=== PATIENT | male | born 1975 | race Caucasian/White ===

== ENCOUNTER 2023-11-28 08:57 | Emergency (ER) | payer BC, SELFPAY ==
[2023-11-28 09:00] VITALS: BP 165/103
--- NOTE | 2023-11-28 09:07 | ED.GENMED ---
History of Present Illness
<Angeline Henderson DEVELOPMENTAL MATHEMATICS PROFESSOR - Last Filed: 11/28/23 15:47>
General
Chief Complaint: Swelling
Source: patient
Exam Limitations: none
Time Seen by Provider: 11/28/23 09:06
Nursing documentation reviewed up to this point in time: agreed with
History of Present Illness
History of Present Illness:
48-year-old male with history of A-fib on Eliquis, HTN on Lisinopril since 04/2021) and metoprolol presents with tongue swelling. States 1:30 this a.m. left side tongue swelled, this has subsided but at 7 a.m. the right side of his tongue swelled and
this is how he presents now. He denies any know exposures. He denies swelling or pain in throat. He is able to swallow and speak well. He denies SOB, CP.
Left ankle pain and swelling past month. No overuse or injury. This a.m. pain 12/06. 'I know it's gout.' Has had gout in left great toe in past and taken steroids for it. Denies fever/chills.
Past History
<Angeline Henderson DEVELOPMENTAL MATHEMATICS PROFESSOR - Last Filed: 11/28/23 15:47>
Past History
ED Past Medical History: CAD, HTN and Hypercholesterolemia
ED Past Surgical History: Cardiac (CABG x 4) and Other (hernia repair)
Social History
Tobacco: Former smoker
Alcohol: Occasional
Personal: Single
Living: alone
Employment: Employed
Review of Systems
<Angeline Henderson, DEVELOPMENTAL MATHEMATICS PROFESSOR - Last Filed: 11/28/23 15:47>
Review of Systems
Allergies reviewed?: Yes
All Other Systems: ROS reviewed and negative except as documented in HPI and ROS
Constitutional: Denies fever
EENT: Reports other (tongue swelling); Denies sore throat
Respiratory: Denies trouble breathing
Cardiac: Denies chest pain
ABD/GI: Denies abdominal pain or nausea
Musculoskeletal: Reports other (pain, swelling left ankle past month. Hx gout in right great toe, 'I know it's gout' Has taken Tylenol for the pain 12/06 this a.m. Has taken steroids in the past for his gout)
Skin: Reports no symptoms
Neurological: Reports no symptoms
Phy Exam
<Angeline Henderson, DEVELOPMENTAL MATHEMATICS PROFESSOR - Last Filed: 11/28/23 15:47>
Physical Exam
Physical Exam:
GENERAL: No acute distress. A&Ox3.
CONSTITUTIONAL: Afebrile.
EYES: clear, conjunctivae normal
Neck: Supple
ENMT: moist mucus membranes, moderate edema right side only of tongue. Swallowing well, speaking well. Pharynx nl
RESPIRATORY: Regular respirations, nonlabored, lungs clear.
CARDIOVASCULAR: Regular rate and rhythm, no murmurs, no rubs.
GI: Soft, nontender
MUSCULOSKELETAL: Moderate swelling and tenderness lateral aspect left ankle, no redness or warmth. Well perfused.
SKIN: Warm, dry, pink
PSYCH: Normal mood and affect. Well kept, interactive and appropriate
NEUROLOGIC: Awake, alert and oriented. No focal neurological deficits
Scores
<Angeline Henderson, DEVELOPMENTAL MATHEMATICS PROFESSOR - Last Filed: 11/28/23 15:47>
Heart Failure Risk
Heart Failure Risk Score: Not Applicable
Course
<Angeline Henderson, DEVELOPMENTAL MATHEMATICS PROFESSOR - Last Filed: 11/28/23 15:47>
Orders/Labs/Results
Orders:
Orders
11/28/23 09:35
Dexamethasone Pf [Decadron] 10 mg PO NOW STA
11/28/23 10:15
Diphenhydramine [Benadryl] 50 mg IV NOW STA
11/28/23 10:35
Complete Blood Count/With Diff Urgent
Comprehensive Metabolic Panel Urgent
Abnormal Lab Results
11/28/23
10:35
MCHC 32.6 L g/dL
(33.0-37.0)
MPV 10.6 H fL
(7.4-10.4)
Absolute Neuts (auto) 7.8 H 10^3/uL
(1.4-6.5)
Absolute Monos (auto) 1.0 H 10^3/uL
(0.1-0.6)
Neutrophils % 75.6 H %
(42.2-75.2)
Lymphocytes % 11.7 L %
(20.5-51.1)
Monocytes % 10.1 H %
(1.7-9.3)
Glucose 106 H mg/dl
(70-99)
11/28/23 10:35
11/28/23 10:35
Vital Signs
Initial and Last Documented VS:
Initial Vital Signs
Temp Pulse Resp BP Pulse Ox
98.6 F 85 18 165/103 96
11/28/23 09:00 11/28/23 09:00 11/28/23 09:00 11/28/23 09:00 11/28/23 09:00
Last Documented Vital Signs
Temp Pulse Resp BP Pulse Ox
98.6 F 94 22 134/77 96
11/28/23 09:00 11/28/23 12:45 11/28/23 12:45 11/28/23 12:00 11/28/23 12:45
<Kristian Mosley MD - Last Filed: 11/28/23 12:33>
Orders/Labs/Results
Orders:
Orders
11/28/23 09:35
Dexamethasone Pf [Decadron] 10 mg PO NOW STA
11/28/23 10:15
Diphenhydramine [Benadryl] 50 mg IV NOW STA
11/28/23 10:35
Complete Blood Count/With Diff Urgent
Comprehensive Metabolic Panel Urgent
Abnormal Lab Results
11/28/23
10:35
MCHC 32.6 L g/dL
(33.0-37.0)
MPV 10.6 H fL
(7.4-10.4)
Absolute Neuts (auto) 7.8 H 10^3/uL
(1.4-6.5)
Absolute Monos (auto) 1.0 H 10^3/uL
(0.1-0.6)
Neutrophils % 75.6 H %
(42.2-75.2)
Lymphocytes % 11.7 L %
(20.5-51.1)
Monocytes % 10.1 H %
(1.7-9.3)
Glucose 106 H mg/dl
(70-99)
11/28/23 10:35
11/28/23 10:35
Vital Signs
Initial and Last Documented VS:
Initial Vital Signs
Temp Pulse Resp BP Pulse Ox
98.6 F 85 18 165/103 96
11/28/23 09:00 11/28/23 09:00 11/28/23 09:00 11/28/23 09:00 11/28/23 09:00
Last Documented Vital Signs
Temp Pulse Resp BP Pulse Ox
98.6 F 94 22 134/77 96
11/28/23 09:00 11/28/23 12:45 11/28/23 12:45 11/28/23 12:00 11/28/23 12:45
<Angeline Henderson, DEVELOPMENTAL MATHEMATICS PROFESSOR - Last Filed: 11/28/23 15:47>
MDM/Problems Addressed
Differential Diagnosis Includes:
ACEI side effect (Bradykinin induced), allergic (mast cell/histamine, idiopathic angioedema, AAE-C1-INH
Gout left ankle
MDM/Problems Addressed:
48-year-old male with history of A-fib on Eliquis, HTN on Lisinopril since 04/2021) and metoprolol presents with tongue swelling. States 1:30 this a.m. left side tongue swelled, this has subsided but at 7 a.m. the right side of his tongue swelled and
this is how he presents now. He denies any know exposures. He denies swelling or pain in throat. He is able to breathe, swallow and speak well. He denies SOB, CP.
Left ankle pain and swelling past month. No overuse or injury. This a.m. pain 12/06. 'I know it's gout.' Has had gout in left great toe in past and taken steroids for it. Denies fever/chills.
Afebrile, VSS, NAD
Pt states no known exposures, is on Lisinopril which is most likely offending agent
Plan: Monitor airway
Given Decadron for presumptive gout left ankle
10:10 a.m.
Called to pt room, he states 'my lymph nodes suddenly got swollen.' Talking with hot potato voice. Denies difficulty breathing or swallowing. VSS Pulse ox 97% RA
Dr. Mosley in to evaluate
Plan: Admit for observation, airway management if needed
Hospitalist notified of admission
10:45 a.m.
Pt states his neck swelling feels 'a little better.'
12:30 p.m.
Pt neck swelling is significantly better. Tongue is about 80% less swollen. Pt wants to go home. This is reasonable. Return instructions discussed.
For his left ankle pain/gout rx for Prednisone sent to his pharmacy
<Angeline Henderson DEVELOPMENTAL MATHEMATICS PROFESSOR - Last Filed: 11/28/23 15:47>
*Critical Care Note
Total Time (30-74mins, 75-104mins- exclusive of procedures): Not Applicable
ED Attending Note
<Angeline Henderson DEVELOPMENTAL MATHEMATICS PROFESSOR - Last Filed: 11/28/23 15:47>
-
Portions of this chart may have been created with voice recognition software.� Occasional wrong word or��sound alike� substitutions may have occurred due to the inherent limitations of voice recognition software.
<Kristian Mosley MD - Last Filed: 11/28/23 12:33>
ED Attending Note
Patient seen and examined by attending physician: Yes
I performed the substantive portion of visit, reviewed & personally made and approve the management plan that is documented in note by myself or MARTIN.: Yes
ED Attending Note:
Patient is a 40-year-old male with history of hypertension on lisinopril presenting to the emergency department with tongue swelling. Patient states that this morning he had left-sided tongue swelling. That resolved and then later this morning
developed right-sided tongue swelling. He states that it has been stable since he arrived. He does not have any swelling in the back of his throat. He does feel as if his voice is more muffled and slurred secondary to the tongue. He denies any
difficulty breathing. No difficulty swallowing his secretions. He denies any new medications food or allergic reactions. No rashes vomiting or diarrhea. He did receive Decadron and states that he feels some fullness underneath his jaw with his
lymph nodes. He denies any lip swelling or eye swelling. Vitals are notable for elevated blood pressure initially within normal pulse ox. Exam does show significant right sided tongue swelling with difficulty visualizing the posterior oropharynx.
No lip involvement. His neck does have some fullness but no significant edema at this time. His lungs are clear to auscultation bilaterally. No stridor. Concern for KAYLEY inhibitor induced angioedema. Will give him Benadryl. Patient will need
to be admitted for an airway watch. I did discuss with patient the need for fiberoptic awake intubation if symptoms progress at this time he is amenable to it.
On reevaluation all patient's symptoms have mostly resolved. He does have some slight residual tongue swelling. Patient is actually asking to be discharged home given the improvement in symptoms which is what occurred with the left side of his
tongue. Strict return precautions given. I did encourage admission however patient adamant about going home.
Discharge Plan
Departure
Patient Disposition: Home (Routine Discharge)
Date of Disposition: 11/28/23
Time of Disposition: 10:18
Admit to: ICU
Patient with high blood pressure during this ER visit?: No
Condition: Good
Discharge Problem:
Angioedema
Instructions: Angioedema caused by KAYLEY inhibitor medicines
Prescriptions:
New
prednisone 20 mg tablet
40 mg PO DAILY Qty: 10 0RF
No Action
atorvastatin 80 mg Tablet
80 mg PO DAILY
metoprolol succinate [Toprol XL] 50 mg Tablet Extended Release 24 Hr
50 mg PO DAILY
lisinopril 10 mg Tablet
10 mg PO DAILY
metoprolol succinate [Toprol XL] 25 mg Tablet Extended Release 24 Hr
25 mg PO BID
albuterol sulfate 90 mcg/actuation Hfa Aerosol Inhaler
2 puff INHALATION Q6H PRN (Reason: wheezing)
multivitamin Capsule
1 cap PO DAILY
Eliquis 5 mg Tablet
5 mg PO BID
dapagliflozin propanediol [Farxiga] 10 mg Tablet
10 mg PO DAILY
Referrals:
Kaylee Patton NP [Family Provider] - As needed
Activity Restrictions/Additional Instructions:
As we discussed, continue Benadryl 50 mg every 6 hours as needed for swelling.
Return here IMMEDIATELY if swelling gets worse
STOP Lisinopril and notify your doctor today to see what she wants to use instead.
Interventions
Interventions:
*Risk Screen - Suicide Last Done: 11/28/23 09:17
*General Assessment Last Done: 11/28/23 09:17
*Neglect/Abuse Screening Last Done: 11/28/23 09:17
ED- Fall Risk Assessment Last Done: 11/28/23 09:17
*ED COVID-19 Vaccine History Last Done: 11/28/23 09:17
*Nursing Disposition Last Done: 11/28/23 13:03
ED- Cardiac Assessment Last Done: 11/28/23 09:17
ED- Pulmonary Assessment Last Done: 11/28/23 09:17
ED-Skin Assessment Last Done: 11/28/23 09:17
Discharge Date and Time
Discharge Date/Time: 11/28/23 13:04
Print Language: CROATIAN
[2023-11-28 09:15] VITALS: BP 139/76
[2023-11-28 09:16] VITALS: BMI 36.1
[2023-11-28] MEDS: DECADRON 10 MG PO (09:48)
[2023-11-28 10:00] VITALS: BP 131/74
[2023-11-28] MEDS: BENADRYL 50 MG IV (10:31)
[2023-11-28 10:49] LABS: % Basophils 0.5 % (0-2); % Eosinophils 1.7 % (0-6); % Immature Granulocytes 0.4 % (0-0.5); % Lymphocytes 11.7 % (20.5-51.1); % Monocytes 10.1 % (1.7-9.3); % Neutrophils 75.6 % (42.2-75.2); Absolute Basophils 0.1 10^3/uL (0-0.2); Absolute Eosinophils 0.2 10^3/uL (0-0.7); Absolute Lymphocytes 1.2 10^3/uL (1.2-3.4); Absolute Neutrophils 7.8 10^3/uL (1.4-6.5); Hematocrit 43.2 % (39.0-52.0); Hemoglobin 14.1 g/dL (13.0-18.0); Mean Corp Hgb Conc. 32.6 g/dL (33.0-37.0); Mean Corpuscular Volume 88.9 fL (80.0-94.0); Mean Platelet Volume 10.6 fL (7.4-10.4); Nucleated Red Blood Cells % 0 % (-); Platelet Count 192 10^3/uL (130-400); Red Blood Cell Count 4.86 10^6/uL (4.70-6.10); Red Cell Dist. Width 14.3 % (11.5-14.5); White Blood Cell Count 10.3 10^3/uL (4.8-10.8)
[2023-11-28 10:57] LABS: ALT (SGPT) 23 U/L (0-50); AST (SGOT) 21 U/L (17-59); Albumin 4.2 g/dl (3.5-5.0); Alkaline Phosphatase 77 U/L (38-126); Blood Urea Nitrogen 18 mg/dl (9-20); Calcium 9.7 mg/dl (8.4-10.2); Carbon Dioxide 27 mmol/L (22-30); Chloride 101 mmol/L (98-107); Estimated Creatinine Clearance > 125 ml/min; Glucose 106 mg/dl (70-99); Potassium 4.3 mmol/L (3.5-5.1); Sodium 140 mmol/L (135-145); Total Bilirubin 0.9 mg/dl (0.2-1.3); Total Protein 6.7 g/dl (6.3-8.2); eGFR > 60.00
[2023-11-28 11:00] VITALS: BP 124/75
[2023-11-28 12:00] VITALS: BP 134/77
== END 2023-11-28 13:04 | disposition home or self-care (01) ==
LOC: EMR 08:57
PROVIDERS: Registered Nurse; EMERGENCY PHYSICIAN Student in an Organized Health Care Education/Training Program; FAMILY PHYSICIAN Internal Medicine
DX: T78.3XXA Angioneurotic edema, initial encounter (principal); R22.1 Localized swelling, mass and lump, neck; M25.472 Effusion, left ankle; M25.572 Pain in left ankle and joints of left foot; I10 Essential (primary) hypertension; M10.9 Gout, unspecified; I48.91 Unspecified atrial fibrillation; I25.10 Atherosclerotic heart disease of native coronary artery without angina pectoris; E78.00 Pure hypercholesterolemia, unspecified; J45.909 Unspecified asthma, uncomplicated; F41.9 Anxiety disorder, unspecified; Z95.1 Presence of aortocoronary bypass graft; Z87.891 Personal history of nicotine dependence; Z79.01 Long term (current) use of anticoagulants; Z79.899 Other long term (current) drug therapy
CPT/HCPCS: 99284; 96374; 80053; 85025